=== PATIENT | male | born 1990 | race Caucasian/White ===

== ENCOUNTER 2016-12-24 09:27 | Day surgery (SDC) | payer OTHER ==
[~2016-12-24 09:27] MED LIST: Buffered Lidocaine 0.9% SYRIN* 5 ML/SYR SYRINGE INTRADERM ONE; Dexamethasone IV* 4 MG/ML 1 ML (4 MG) IV SLOW PU ONE; Famotidine IV* 10 MG/ML 2 ML (20 mg) IV ONE
[2016-12-24] MEDS ORDERED: Famotidine IV* 10 MG/ML 2 ML (20 mg) ONE (10:05)
[2016-12-24] MEDS ORDERED: Dexamethasone IV* 4 MG/ML 1 ML (4 MG) ONE (10:06)
[2016-12-24] MEDS ORDERED: Buffered Lidocaine 0.9% SYRIN* 5 ML/SYR SYRINGE ONE (10:06)
[2016-12-24] MEDS ORDERED: Midazolam* 1 MG/ML 2 ML VIAL (2 MG) ONE (10:43)
[2016-12-24] MEDS ORDERED: fentaNYL* 50 MCG/ML 2 ML VIAL (100 MCG VIAL) ONE (10:43)
[2016-12-24] MEDS ORDERED: Ondansetron INJ* 2 MG/ML VIAL ONE (10:47)
[2016-12-24] MEDS ORDERED: Propofol* 10 MG/ML 20 ML BTL IV PUSH ONE (10:47)
[2016-12-24] MEDS ORDERED: Ketorolac INJ* 30 MG/ML 1 ML VIAL ONE (10:47)
[2016-12-24] MEDS ORDERED: Oxymetazoline 0.05% NASAL SPR* 15 ML BTL ONE (10:49)
[2016-12-24] MEDS ORDERED: Lidocaine 2% W/EPI 1:100,000* 20 ML MDV ONE (10:50)
[2016-12-24] MEDS ORDERED: Lidocaine 1.5% EPI 1:200,000* 30 ML SDV ONE (10:50)
[2016-12-24] MEDS ORDERED: fentaNYL* 50 MCG/ML 2 ML VIAL (100 MCG VIAL) IV PRN (11:42)
[2016-12-24] MEDS ORDERED: DiMENhydriNATE IV* 50 MG/ML VIAL IV PUSH PRN (11:42)
[2016-12-24 13:31] VITALS: BP 131/80
--- NOTE | 2016-12-24 16:15 | OP ---
DATE OF OPERATION: 12/24/16 - [facility] DATE OF : 89 SURGEON: Tahir Winter M.D. ANESTHESIOLOGIST: Андрей Rod MD ANESTHESIA: General PRE-OP DIAGNOSES: 1. Deviated nasal septum with hypertrophy of nasal turbinates and nasal dyspnea. 2. Nevus of the left forearm. POST-OP DIAGNOSES: 1. Deviated nasal septum with hypertrophy of nasal turbinates and nasal dyspnea. 2. Nevus of the left forearm. OPERATIVE PROCEDURE: Excision of left forearm nevus and septoplasty and submucosal resection of inferior turbinates bilaterally. BRIEF HISTORY: This 26-year-old gentleman with nasal dyspnea, deviated nasal septum, hypertrophied turbinates, not improving with medical management. He also had a fairly large heavy nevus of the left arm, which was cosmetically and also because of the risk of exposure to sunlight concerning to the patient. DESCRIPTION OF PROCEDURE: The patient was taken to the operating room. General anesthetic given. The patient was intubated. The arm was then prepped and draped in usual fashion. Approximately 4 cm x 3 cm lesion was excised. A 2 -layer closure was carried out with Vicryl in vertical mattress sutures. We turned our attention to the septum, a right hemitransfixion incision created , mucoperichondrial flap was elevated. Quadrangular cartilage was disarticulated along the vomer-ethmoidal complex in the anterior portion along the maxillary crest. A portion of the ethmoidal complex was removed, which had a large spur. Quadrangular cartilage was then scored on its concave surface, replaced in the midline. The hemitransfixion incision was closed. Shaina splints were applied and secured. Next, we turned our attention to the inferior turbinates. A submucosal incision was created. Submucosal elevation of tissue was carried out. Submucosal bone was removed, cauterization was carried out for hemostasis. The patient was then awakened and sent to recovery room in stable condition. Instrument and sponge count correct. Blood loss minimal. [id number] #: [id number] [facility]
== END 2016-12-24 13:58 | disposition home or self-care (01) ==
LOC: OR 09:27
PROVIDERS: ATTEND Otolaryngology
DX: J34.2 Deviated nasal septum (principal); J34.3 Hypertrophy of nasal turbinates; R06.09 Other forms of dyspnea; D22.62 Melanocytic nevi of left upper limb, including shoulder; J31.0 Chronic rhinitis; F17.210 Nicotine dependence, cigarettes, uncomplicated; J35.3 Hypertrophy of tonsils with hypertrophy of adenoids
CPT/HCPCS: 88305; A9270-GY; J1100; J1885; J2250; J2405; J2704; J3010

== ENCOUNTER 2018-03-03 08:30 | Emergency (ER) | payer OTHER ==
[2018-03-03 09:01] VITALS: BP 126/76
--- NOTE | 2018-03-03 10:16 | UC ---
Throat Pain/Nasal Jon HPI - HPI Summary HPI Summary: 12 hours of sore throat , able to swallow liquids - History of Current Complaint Chief Complaint: UCRespiratory Stated Complaint: SORE THROAT,COUGH Time Seen by Provider: 03/03/18 09:23 Hx Obtained From: Patient Onset/Duration: Gradual Onset Severity: Mild Pain Intensity: 2 Associated Signs & Symptoms: Positive: Negative - Epiglottits Risk Factors Epiglottis Risk Factors: Negative - Allergies/Home Medications Allergies/Adverse Reactions: Allergies Allergy/AdvReac Type Severity Reaction Status Date / Time seasonal Allergy Runny Nose Uncoded 03/03/18 09:03 PMH/Surg Hx/FS Hx/Imm Hx Previously Healthy: Yes - Surgical History Surgical History: Yes Surgery Procedure, Year, and Place: nasal 12/2016, birthmark - Social History Alcohol Use: Occasionally Substance Use Type: None Substance Use Comment - Amount & Last Used: occ. usage Smoking Status (MU): Heavy Every Day Tobacco Smoker Type: Cigarettes Amount Used/How Often: 1/2 ppd Length of Time of Smoking/Using Tobacco: 7 yrs Have You Smoked in the Last Year: Yes - Immunization History Most Recent Tetanus Shot: unknown Review of Systems Constitutional: Negative Skin: Negative Eyes: Negative ENT: Negative Respiratory: Negative Cardiovascular: Negative Gastrointestinal: Negative Genitourinary: Negative Motor: Negative Neurovascular: Negative Musculoskeletal: Negative Neurological: Negative Psychological: Negative All Other Systems Reviewed And Are Negative: Yes Physical Exam Triage Information Reviewed: Yes Appearance: Well-Appearing Vital Signs: Initial Vital Signs Temp 36.6 C 03/03/18 08:54 Pulse 89 03/03/18 08:54 Resp 18 03/03/18 08:54 BP 126/76 03/03/18 08:54 Pulse Ox 100 03/03/18 08:54 Vital Signs Reviewed: Yes Eye Exam: Normal Eyes: Positive: Conjunctiva Clear ENT Exam: Normal ENT: Positive: Pharyngeal erythema Dental Exam: Normal Neck: Positive: Supple Respiratory Exam: Normal Respiratory: Positive: Chest non-tender, Lungs clear Cardiovascular Exam: Normal Abdominal Exam: Normal Abdomen Description: Positive: Nontender Bowel Sounds: Positive: Present Musculoskeletal Exam: Normal Neurological Exam: Normal Psychological Exam: Normal Throat Pain/Nasal Course/Dx - Differential Dx/Diagnosis Provider Diagnoses: pharyngitis Discharge - Sign-Out/Discharge Documenting (check all that apply): Patient Departure All imaging exams completed and their final reports reviewed: Yes - Discharge Plan Condition: Good Disposition: HOME Patient Education Materials: Pharyngitis (ED) Referrals: Jt Webber [Primary Care Provider] - - Billing Disposition and Condition Condition: GOOD Disposition: Home
== END 2018-03-03 10:23 | disposition home or self-care (01) ==
LOC: UCCORT 08:30
DX: J02.9 Acute pharyngitis, unspecified (principal)
CPT/HCPCS: 87651; 99211; G0463